=== PATIENT | female | born 1990 | race Caucasian/White ===

== ENCOUNTER 2020-01-09 11:27 | Outpatient (REF) | payer OTHER, SELFPAY ==
[2020-01-09 12:10] LABS: COVID-19 Test Negative (Negative)
== END 2020-01-09 11:28 | disposition home or self-care (01) ==
LOC: HO.LAB 11:27
PROVIDERS: Visit Provider Internal Medicine
DX: Z20.828 Contact with and (suspected) exposure to other viral communicable diseases (principal)
CPT/HCPCS: 87635

== ENCOUNTER 2020-01-13 13:52 | Outpatient (REF) | payer OTHER, SELFPAY ==
[2020-01-13 14:19] LABS: COVID-19 Test Negative (Negative)
== END 2020-01-13 13:53 | disposition home or self-care (01) ==
LOC: HO.LAB 13:52
PROVIDERS: Visit Provider Internal Medicine
DX: Z20.828 Contact with and (suspected) exposure to other viral communicable diseases (principal)
CPT/HCPCS: 87635

== ENCOUNTER 2020-01-15 15:50 | Outpatient (REF) | payer OTHER, SELFPAY ==
[2020-01-15 17:20] LABS: COVID-19 Test Negative (Negative)
== END 2020-01-15 15:51 | disposition home or self-care (01) ==
LOC: HO.LAB 15:50
PROVIDERS: Visit Provider Internal Medicine
DX: Z20.828 Contact with and (suspected) exposure to other viral communicable diseases (principal)
CPT/HCPCS: 87635

== ENCOUNTER 2020-01-18 08:08 | Outpatient (REF) | payer OTHER, SELFPAY ==
[2020-01-18 08:30] LABS: COVID-19 Test Negative (Negative)
== END 2020-01-18 08:09 | disposition home or self-care (01) ==
LOC: HO.LAB 08:08
PROVIDERS: Visit Provider Internal Medicine
DX: Z20.828 Contact with and (suspected) exposure to other viral communicable diseases (principal)
CPT/HCPCS: 87635

== ENCOUNTER 2020-07-25 08:58 | Outpatient (REF) | payer OTHER, SELFPAY ==
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
== END 2020-07-25 08:59 | disposition home or self-care (01) ==
LOC: HO.XRAY 08:58
PROVIDERS: Visit Provider Emergency Medicine
DX: M54.6 Pain in thoracic spine (principal)
CPT/HCPCS: 72050; 72070; 72100

== ENCOUNTER 2020-07-27 07:50 | Emergency (ER) | payer OTHER, SELFPAY ==
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
[2020-07-27 07:52] VITALS: BP 114/78; PULSE 86; RESP 18; TEMP 36.3; O2SAT 100; BMI 24.4
--- NOTE | 2020-07-27 09:15 | PC.NURSE ---
MRI SCREENING FORM FAXED TO MRI DEPT, PT CHANGED IN TO [facility] FOR TESTING
[2020-07-27 11:20] VITALS: BP 114/76; PULSE 84; RESP 16; TEMP 36.6; O2SAT 98
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
== END 2020-07-27 11:45 | disposition home or self-care (01) ==
PROVIDERS: Emergency Provider Emergency Medicine
DX: M48.32 Traumatic spondylopathy, cervical region (principal); M54.2 Cervicalgia; Z79.899 Other long term (current) drug therapy
CPT/HCPCS: 72141; 72146; 99284

== ENCOUNTER → 2020-11-16 09:12 | Outpatient (BNVA) | payer OTHER, SELFPAY | DX: Z20.822 Contact with and (suspected) exposure to COVID-19 (principal) | CPT/HCPCS: 36415; 87635 ==

== ENCOUNTER 2020-11-16 17:23 | Outpatient (REF) | payer OTHER, SELFPAY ==
[2020-11-16 18:21] LABS: Influenza A PCR NEGATIVE (Negative); Influenza B PCR NEGATIVE (Negative); Resp Syncy Virus RNA Qual PCR NEGATIVE (Negative); SARS COV2 PCR INHOUSE NEGATIVE (Negative)
[2020-11-16 18:47] LABS: Adenovirus PCR Not Detected (Not Detect.); Bordetella parapertussis PCR Not Detected (Not Detect.); Bordetella pertussis PCR Not Detected (Not Detect.); Chlamydia pneumoniae PCR Not Detected (Not Detect.); Coronavirus 229E PCR Not Detected (Not Detect.); Coronavirus HKU1 PCR Not Detected (Not Detect.); Coronavirus NL63 PCR Not Detected (Not Detect.); Coronavirus OC43 PCR Not Detected (Not Detect.); Human metapneumovirus PCR Not Detected (Not Detect.); Influenza A PCR Not Detected (Not Detect.); Influenza B PCR Not Detected (Not Detect.); Mycoplasma pneumoniae PCR Not Detected (Not Detect.); Parainfluenza 1 PCR Not Detected (Not Detect.); Parainfluenza 2 PCR Not Detected (Not Detect.); Parainfluenza 3 PCR Not Detected (Not Detect.); Parainfluenza 4 PCR Not Detected (Not Detect.); Rhino/Enterovirus PCR Not Detected (Not Detect.); SARS-CoV-2 PCR Not Detected (Not Detect.)
[2020-11-17 09:08] LABS: RSV PCR Detected (Not Detect.)
== END 2020-11-16 17:24 | disposition home or self-care (01) ==
LOC: HO.LAB 17:23
PROVIDERS: Physician Assistant; Visit Provider Nurse Practitioner Family
DX: Z20.822 Contact with and (suspected) exposure to COVID-19 (principal)
CPT/HCPCS: 0241U; 36415; 87633

== ENCOUNTER 2021-02-07 09:21 | Outpatient (REF) | payer OTHER, SELFPAY ==
[2021-02-07 10:37] LABS: Influenza A PCR NEGATIVE (Negative); Influenza B PCR NEGATIVE (Negative); Resp Syncy Virus RNA Qual PCR NEGATIVE (Negative); SARS COV2 PCR INHOUSE NEGATIVE (Negative)
[2021-02-07 12:28] LABS: Adenovirus PCR Not Detected (Not Detect.); Bordetella parapertussis PCR Not Detected (Not Detect.); Bordetella pertussis PCR Not Detected (Not Detect.); Chlamydia pneumoniae PCR Not Detected (Not Detect.); Coronavirus 229E PCR Not Detected (Not Detect.); Coronavirus HKU1 PCR Not Detected (Not Detect.); Coronavirus NL63 PCR Not Detected (Not Detect.); Human metapneumovirus PCR Not Detected (Not Detect.); Influenza A PCR Not Detected (Not Detect.); Influenza B PCR Not Detected (Not Detect.); Mycoplasma pneumoniae PCR Not Detected (Not Detect.); Parainfluenza 1 PCR Not Detected (Not Detect.); Parainfluenza 2 PCR Not Detected (Not Detect.); Parainfluenza 3 PCR Not Detected (Not Detect.); Parainfluenza 4 PCR Not Detected (Not Detect.); RSV PCR Not Detected (Not Detect.); Rhino/Enterovirus PCR Not Detected (Not Detect.); SARS-CoV-2 PCR Not Detected (Not Detect.)
[2021-02-07 13:26] LABS: Coronavirus OC43 PCR Detected (Not Detect.)
== END 2021-02-07 09:22 | disposition home or self-care (01) ==
LOC: HO.LAB 09:21
PROVIDERS: Internal Medicine; Visit Provider Physician Assistant
DX: Z20.822 Contact with and (suspected) exposure to COVID-19 (principal); R62.7 Adult failure to thrive
CPT/HCPCS: 0241U; 36415; 87633

== ENCOUNTER 2021-06-15 21:11 | Outpatient (REF) | payer OTHER, SELFPAY ==
[2021-06-15 22:02] LABS: Influenza A PCR NEGATIVE (Negative); Influenza B PCR NEGATIVE (Negative); Resp Syncy Virus RNA Qual PCR NEGATIVE (Negative); SARS COV2 PCR INHOUSE NEGATIVE (Negative)
== END 2021-06-15 21:12 | disposition home or self-care (01) ==
LOC: HO.LAB 21:11
PROVIDERS: Visit Provider Internal Medicine
DX: Z20.822 Contact with and (suspected) exposure to COVID-19 (principal)
CPT/HCPCS: 0241U

== ENCOUNTER 2021-11-03 17:38 | Outpatient (REF) | payer OTHER, SELFPAY ==
[2021-11-03 18:29] LABS: COVID-19 Test Negative (Negative); IDNOW Serial# 16C4AD1C
== END 2021-11-03 17:39 | disposition home or self-care (01) ==
LOC: HO.LAB 17:38
PROVIDERS: Visit Provider Internal Medicine
DX: Z20.822 Contact with and (suspected) exposure to COVID-19 (principal)
CPT/HCPCS: 87635

== ENCOUNTER 2021-12-02 17:46 | Outpatient (REF) | payer OTHER, SELFPAY ==
[2021-12-02 18:48] LABS: Influenza A PCR NEGATIVE (Negative); Influenza B PCR NEGATIVE (Negative); Resp Syncy Virus RNA Qual PCR NEGATIVE (Negative)
[2021-12-02 18:54] LABS: SARS COV2 PCR INHOUSE POSITIVE (Negative)
== END 2021-12-02 17:47 | disposition home or self-care (01) ==
LOC: HO.LAB 17:46
PROVIDERS: Physician Assistant; Visit Provider Internal Medicine
DX: Z20.822 Contact with and (suspected) exposure to COVID-19 (principal); R50.9 Fever, unspecified
CPT/HCPCS: 0241U